=== PATIENT | female | born 1945 | race Two or more races ===

== ENCOUNTER 2022-12-09 19:54 | Inpatient (IN) | payer MEDICARE, OTHER ==
[~2022-12-09] VITALS: Ht 157.5 cm; Wt 70.3 kg
--- NOTE | 2022-12-09 20:39 | NUR ---
[email or web address], from home,c/o L knee pain s/p slipped and fall 6/10 ps Bruise left hip. Tolerating R/A well with no resp distress. Safety measures in place.
--- NOTE | 2022-12-09 20:39 | NUR ---
[email or web address], from home,c/o L knee pain s/p slipped and fall 6/10 ps bruising to L hip. Awake and alert at baseline mentation -head trauma.
--- NOTE | 2022-12-09 20:40 | NUR ---
PT A/OX4. LEFT LOWER EXTREMITY NOTED WITH EXTERNAL ROTATION AND SHORTENING.
--- NOTE | 2022-12-09 20:55 | NUR ---
COVID ANTIGEN SWAB COLLECTED AND SENT TO LAB
--- NOTE | 2022-12-09 20:56 | NUR ---
LAC #20G S/L; PATENT AND INTACT
--- NOTE | 2022-12-09 21:17 | NUR ---
IN FLIGHT REFUELING OPERATOR AT PT'S BEDSIDE
[2022-12-09] MEDS ORDERED: KETOROLAC TROMETHAMINE 15 MG/ML VIAL ONE (22:08)
[2022-12-09] MEDS ORDERED: KETOROLAC TROMETHAMINE INJ 30 MG/ML VIAL IV ONE (22:30)
--- NOTE | 2022-12-09 23:16 | NUR ---
Cassius mcelroy in [facility] - 12/09/22 at 2317 by KASSI [id number]
--- NOTE | 2022-12-09 23:30 | NUR ---
REPORT GIVEN TO CARYL Meléndez RN FOR CRISTINA
--- NOTE | 2022-12-09 23:33 | NUR ---
UPDATED IDALIA ( DAUGHTER ) [phone] REGARDING ADMISSION
--- NOTE | 2022-12-09 23:45 | NUR ---
PT TRANSFERRING TO [facility] VIA HOTPITAL PROTOCOL. VSS. ALL BELONGINGS WITH PT
--- NOTE | 2022-12-10 00:10 | NUR ---
ADMISSION 77 Female Alert Oriented x4. Skin checked done, no pressure injury. Oriented to room, unit, staff. Limited movement LLE d/t pain. Fall precaution maintained. Will cont to monitor.
[2022-12-10] MEDS ORDERED: hydrALAZINE HCL IV 20 MG VIAL IV PRN (00:30)
[2022-12-10] MEDS ORDERED: DEXTROSE 50%-WATER 50 ML DISP.SYRIN IV PRN (00:30)
[2022-12-10] MEDS ORDERED: Z GUARD REMEDY 4 OZ OINT TP PRN (00:30)
[2022-12-10] MEDS ORDERED: ONDANSETRON HCL/PF 4 MG/2 ML VIAL IVP PRN (00:30)
[2022-12-10] MEDS ORDERED: MORPHINE SULFATE INJ 2 MG/ML DISP.SYRIN IV PRN (00:30)
[2022-12-10] MEDS ORDERED: ACETAMINOPHEN 325 MG TABLET PO PRN ×2 (00:30→19:30)
[2022-12-10 00:48] VITALS: BP 158/71
[2022-12-10 01:04] LABS: BASOPHILS % (AUTO) 0.4 % (0.0-2.0); EOSINOPHILS % (AUTO) 0.4 % (0.0-6.0); HEMATOCRIT 38 % (33-45); HEMOGLOBIN 12.5 g/dL (11.5-14.8); LYMPHOCYTES % (AUTO) 18.8 % (20.0-44.0); MEAN CORPUSCULAR HGB CONC 33 g/dl (31.0-36.0); MEAN CORPUSCULAR VOLUME 86 fL (82-100); MONOCYTES % (AUTO) 9.3 % (2.0-12.0); NEUTROPHILS # (AUTO) 7.6 K/uL (1.8-8.9); NEUTROPHILS % (AUTO) 71.1 % (43.0-81.0); PLATELET COUNT (AUTO) 300 K/uL (150-450); RED BLOOD CELL COUNT(AUTO) 4.38 MIL/uL (4.0-5.2); WHITE BLOOD COUNT (AUTO) 10.7 K/uL (4.3-11.0)
[2022-12-10 01:35] LABS: ALBUMIN 3.2 g/dL (3.4-5.0); BILIRUBIN,TOTAL 1.2 mg/dL (0.2-1.0); CALCIUM, SERUM 9.1 mg/dL (8.5-10.1); CREATININE 0.7 mg/dL (0.6-1.3); MAGNESIUM 1.4 mg/dL (1.8-2.4); POTASSIUM 3.1 mmol/L (3.5-5.1); TOTAL PROTEIN, SERUM 7.7 g/dL (6.4-8.2)
[2022-12-10] MEDS ORDERED: POTASSIUM CHLORIDE 20 MEQ TAB.PRT.SR PO ONE (02:30)
[2022-12-10] MEDS: Magnesium 1GM/D5W 100ML PREMIX 100 ML IV SCH ×4 (02:47→06:07)
--- NOTE | 2022-12-10 06:20 | NUR ---
END OF SHIFT REPORT Patient in bed, awake. Oxygen sat high 90's in RA. Left knee pain managed with Morphine IV. NPO. Low Potassium and Magnesium, supplemented. No Clean catch for specimen urine as patient not voided yet, patient voided urine in the last 5 hours on diaper upon admission to unit. Plan for Ortho, Cardio consult. Will endorse to oncoming RN.
[2022-12-10] MEDS: BLOOD SUGAR DIAGNOSTIC 1 EACH STRIP IN SCH ×4 (06:33→22:27)
[2022-12-10] MEDS: INSULIN REGULAR, HUMAN 100 UNIT/ML 3 ML VIAL SQ PRN ×3 (06:35→22:29)
[2022-12-10] MEDS: PANTOPRAZOLE 40 MG TABLET.DR PO SCH (07:30)
--- NOTE | 2022-12-10 07:30 | NUR ---
MS RN OPENING NOTES RECEIVED PATIENT IN BED AWAKE , A/O 4, VERBALLY RESPONSIVE , ROOM AIR AND TOLERATED WELL , NO SOB OR DISTRESS , NO C/O OF PAIN AND DISCOMFORT , IV ACCESS LAC #20 SL , ON NPO AT THIS TIME , SAFETY MEASURES PROVIDED , CALL WITHIN REACH , SIDERAILS X2 AND WILL CONTINIU TO MONITOR .
[2022-12-10 08:34] VITALS: BP 164/90
[2022-12-10] MEDS: IV D5/0.45 NACL 1,000 ML IV PRN ×2 (13:16→20:09)
--- NOTE | 2022-12-10 13:57 | NUR ---
RN NOTES REGULAR INSULIN NOT GIVEN PATIENT ON NPO FOR SURGERY AND STARTED WITH IV FLUID D51/2 NS @75 ML /HOUR
[2022-12-10 14:45] LABS: BILIRUBIN,URINE 1+ (NEGATIVE); COLOR,URINE YELLOW (YELLOW); LEUKOCYTE ESTERASE ,URINE NEGATIVE (NEGATIVE); NITRITE, URINE NEGATIVE (NEGATIVE); PROTEIN,URINE NEGATIVE (NEGATIVE); UGLUCOSE NEGATIVE (NEGATIVE)
[2022-12-10] MEDS ORDERED: GABA-532 PO (15:31)
[2022-12-10] MEDS ORDERED: METF-442 PO (15:34)
[2022-12-10] MEDS ORDERED: VALS320T2 PO (15:35)
[2022-12-10] MEDS ORDERED: ASPI-1420 PO (15:36)
[2022-12-10] MEDS ORDERED: ATOR20TA PO (15:37)
[2022-12-10] MEDS ORDERED: REPA1TAB7 PO ×2 (15:38→21:32)
[2022-12-10 15:40] LABS: BACTERIA,URINE None seen /HPF (None Seen); RBC,URINE 0-2 /HPF (0-2); WBC,URINE 0-2 /HPF (0-3)
[2022-12-10] MEDS ORDERED: BUPIVACAINE 0.25% 75 MG/30 ML VIAL ONE (15:49)
[2022-12-10 16:07] VITALS: BP 159/70
--- NOTE | 2022-12-10 17:31 | NUR ---
RN NOTES BS NOT TAKEN PATIENT WENT TO SURGERY
--- NOTE | 2022-12-10 17:35 | NUR ---
RN NOTES PATIENT WAS MARKETING AMBASSADOR FOR SURGERY WITH DR ANDRES
[2022-12-10] MEDS ORDERED: FENTANYL PF 100MCG/2ML AMPUL ONE ×2 (17:39)
--- NOTE | 2022-12-10 18:59 | NUR ---
RN NOTES PATIENT STILL ON SURGERY AND ENDORSED TO COMMISSARY HELPER
[2022-12-10] MEDS ORDERED: DOCUSATE SODIUM 100 MG CAPSULE PO PRN (19:30)
[2022-12-10] MEDS ORDERED: DOCUSATE SODIUM 250 MG CAPSULE PO PRN (19:30)
[2022-12-10] MEDS ORDERED: HYDROCODONE/APAP 5/325MG TABLET PO PRN (19:30)
[2022-12-10] MEDS ORDERED: SENNOSIDES 8.6 MG TABLET PO PRN ×2 (19:30)
--- NOTE | 2022-12-10 19:40 | NUR ---
RN OPENING NOTE PATIENT AWAKE IN BED. A/OX4. NO S/S OF DISTRESS, BREATHING WITHOUT DIFFICULTY ON 2L NC. PATIENT RETURNED FROM OR STABLE; PATIENT HAS DAUGHTER AT BEDSIDE. PATIENT COMPLAINS OF PAIN 04/01 (MORPHINE ADMINISTERED). VS FOLLOWS: T: 97.7 HR: 69 O2: 95 BP: 160/78 RESP: 16 R-HAND #22 INTACT AND PATENT W/ D5-1/2NS 75ML/HR. SAFETY MEASURES IN PLACE: BED LOCKED AND AT LOWEST POSITION, LOW-FOWLERS, RAILS UP X2, CALL YING WITHIN REACH. WILL CONTINUE TO MONITOR PATIENT.
[2022-12-10] MEDS: MORPHINE SULFATE INJ 4 MG/ML DISP.SYRIN IV PRN (20:10)
[2022-12-10 20:30] VITALS: BP 161/77
[2022-12-10] MEDS ORDERED: GABA300C PO (21:32)
[2022-12-10] MEDS ORDERED: BRIM5DRO2 OP (21:32)
[2022-12-11] MEDS: ANCEF 1 GM/50 ML D5W IV SCH ×4 (01:06→09:04)
[2022-12-11] MEDS ORDERED: CEFAZOLIN 1 GM in IV D5W 50 ML IV SCH (02:10)
[2022-12-11] MEDS: IV D5/0.45 NACL 1,000 ML IV PRN (06:30)
[2022-12-11] MEDS: BLOOD SUGAR DIAGNOSTIC 1 EACH STRIP IN SCH ×4 (06:30→21:47)
[2022-12-11] MEDS: INSULIN REGULAR, HUMAN 100 UNIT/ML 3 ML VIAL SQ PRN ×4 (06:31→21:50)
--- NOTE | 2022-12-11 06:43 | NUR ---
RN CLOSING NOTE PATIENT AWAKE IN BED. A/OX4. NO S/S OF DISTRESS, BREATHING WITHOUT DIFFICULTY ON 2L NC. R-HAND #22 INTACT AND PATENT W/ D5-1/2NS 75ML/HR. SAFETY MEASURES IN PLACE: BED LOCKED AND AT LOWEST POSITION, MID-FOWLERS, RAILS UP X2, CALL YING WITHIN REACH. WILL ENDORSE TO NEXT SHIFT FOR CRISTINA.
[2022-12-11 07:00] VITALS: BP 158/81
--- NOTE | 2022-12-11 07:26 | NUR ---
MS RN OPENING NOTE RECEIVED PT AWAKE AND RESTING IN BED. PT IS A/O X4, ABLE TO MAKE NEEDS KNOWN. PT ON O2 AT 2L/MIN VIA NASAL CANNULA, TOLERATING WELL. NO SOB NOTED. NOT IN ANY SIGN OF RESPIRATORY DISTRESS. IV ACCESS ON RIGHT HAND G#22 INTACT AND PATENT WITH D5 1/2 NS INFUSING AT 75ML/HR. SAFETY MEASURES IN PLACE: BED IN LOWEST AND LOCKED POSITION, SIDE RAILS UPX2, AND CALL LIGHT WITHIN REACH. WILL CONTINUE PT WITH PLAN OF CARE.
[2022-12-11 07:34] LABS: BASOPHILS % (AUTO) 0.1 % (0.0-2.0); EOSINOPHILS % (AUTO) 0.1 % (0.0-6.0); HEMATOCRIT 34 % (33-45); HEMOGLOBIN 11.4 g/dL (11.5-14.8); LYMPHOCYTES % (AUTO) 9.6 % (20.0-44.0); MEAN CORPUSCULAR HGB CONC 33 g/dl (31.0-36.0); MEAN CORPUSCULAR VOLUME 86 fL (82-100); MONOCYTES % (AUTO) 9.6 % (2.0-12.0); NEUTROPHILS # (AUTO) 8.3 K/uL (1.8-8.9); NEUTROPHILS % (AUTO) 80.6 % (43.0-81.0); PLATELET COUNT (AUTO) 276 K/uL (150-450); RED BLOOD CELL COUNT(AUTO) 3.98 MIL/uL (4.0-5.2); WHITE BLOOD COUNT (AUTO) 10.3 K/uL (4.3-11.0)
[2022-12-11 07:53] LABS: CALCIUM, SERUM 8.3 mg/dL (8.5-10.1); CREATININE 0.6 mg/dL (0.6-1.3); PHOSPHORUS 2.4 mg/dL (2.5-4.9); POTASSIUM 3.6 mmol/L (3.5-5.1)
[2022-12-11] MEDS: PANTOPRAZOLE 40 MG TABLET.DR PO SCH (08:22)
[2022-12-11] MEDS: ENOXAPARIN SODIUM 40 MG/0.4 ML DISP.SYRIN SQ SCH (09:05)
[2022-12-11] MEDS ORDERED: K PHOS NEUTRAL 250 MG TABLET PO ONE ×2 (10:00→11:00)
[2022-12-11] MEDS: MORPHINE SULFATE INJ 4 MG/ML DISP.SYRIN IV PRN (10:04)
--- NOTE | 2022-12-11 10:06 | NUR ---
RN NOTE PT C/O LEFT HIP PAIN WITH PAIN SCALE LEVEL OF 9/10 AND REQUESTED FOR HER PAIN MEDICATION. MORPHINE 4MG IVP ADMINISTERED ORDERED Q4HRS PRN FOR PAIN. WILL MONITOR AND REASSESS PT.
[2022-12-11 17:00] VITALS: BP 148/59
--- NOTE | 2022-12-11 18:49 | NUR ---
MS RN CLOSING NOTE PT AWAKE AND RESTING IN BED. PT IS A/O X4, ABLE TO MAKE NEEDS KNOWN. PT ON O2 AT 2L/MIN VIA NASAL CANNULA, TOLERATING WELL. NO SOB NOTED. NOT IN ANY SIGN OF RESPIRATORY DISTRESS. PT'S IV ACCESS ON RIGHT HAND G#22 WAS PULLED OUT ACCIDENTLY. ATTEMPTED TO REINSERT COUPLE OF TIMES BUT UNABLE TO. MADE CHARGED NURSE AWARE AND PER CHARGE NURSE WILL ENDORSE TO BILINGUAL CUSTOMER SERVICE NURSE TO TRY TO REINSERT. PT ON S/P LEFT HIP CLOSED REDUCTION PERCUTANEOUS PINNING WITH CANNULATED SCREWS, DRESSING C/D/I. PT DENIES PAIN OR DISCOMFORT AT THIS TIME. MCGINNIS CATHETER IN PLACE AND DRAINING WELL. ALL NEEDS ATTENDED. KEPT CLEAN AND COMFORTABLE AT ALL TIMES. TURNED AND REPOSITIONED Q2HRS AND NEEDED. SAFETY MEASURES IN PLACE: BED IN LOWEST AND LOCKED POSITION, SIDE RAILS UPX2, AND CALL LIGHT WITHIN REACH. WILL ENDORSE TO BILINGUAL CUSTOMER SERVICE NURSE FOR CRISTINA.
--- NOTE | 2022-12-11 20:17 | NUR ---
RN OPENING NOTE PATIENT AWAKE IN BED WITH FAMILY AT BEDSIDE. A/OX4. NO S/S OF DISTRESS, BREATHING WITHOUT DIFFICULTY ON 2L NC. NO IV ACCESS IT WAS ENDORSED TO THIS NURSE FROM DAY SHIFT RN THAT THEY WERE UNABLE TO ACHIEVE ACCESS. CHARGE NURSE, KINJAL, WILL REINSERT IV PATIENT IS HESITANT TO HAVE ANOTHER IV ADMINISTERED. SAFETY MEASURES IN PLACE: BED LOCKED AND AT LOWEST POSITION, MID-FOWLERS, RAILS UP X2, CALL YING WITHIN REACH. WILL CONTINUE TO MONITOR PATIENT.
[2022-12-11 20:59] VITALS: BP 140/65
[2022-12-11] MEDS: HYDROCODONE/APAP 5/325MG TABLET PO PRN (21:47)
[2022-12-12] MEDS: HYDROCODONE/APAP 5/325MG TABLET PO PRN (05:40)
[2022-12-12 06:19] LABS: BASOPHILS # (AUTO) 0.1 K/uL (0.0-0.2); BASOPHILS % (AUTO) 0.6 % (0.0-2.0); EOSINOPHILS % (AUTO) 2.7 % (0.0-6.0); HEMATOCRIT 34 % (33-45); HEMOGLOBIN 11.2 g/dL (11.5-14.8); LYMPHOCYTES % (AUTO) 28.3 % (20.0-44.0); MEAN CORPUSCULAR HGB CONC 33 g/dl (31.0-36.0); MEAN CORPUSCULAR VOLUME 87 fL (82-100); MONOCYTES # (AUTO) 1.4 K/uL (0.1-1.30); MONOCYTES % (AUTO) 10.3 % (2.0-12.0); NEUTROPHILS # (AUTO) 8.1 K/uL (1.8-8.9); NEUTROPHILS % (AUTO) 58.1 % (43.0-81.0); PLATELET COUNT (AUTO) 309 K/uL (150-450); RED BLOOD CELL COUNT(AUTO) 3.94 MIL/uL (4.0-5.2)
[2022-12-12 06:29] LABS: CALCIUM, SERUM 8.9 mg/dL (8.5-10.1); CREATININE 0.6 mg/dL (0.6-1.3); MAGNESIUM 1.9 mg/dL (1.8-2.4); PHOSPHORUS 2.6 mg/dL (2.5-4.9); POTASSIUM 3.3 mmol/L (3.5-5.1)
[2022-12-12] MEDS: INSULIN REGULAR, HUMAN 100 UNIT/ML 3 ML VIAL SQ PRN ×3 (06:42→21:26)
[2022-12-12] MEDS: BLOOD SUGAR DIAGNOSTIC 1 EACH STRIP IN SCH ×4 (06:42→21:23)
--- NOTE | 2022-12-12 06:46 | NUR ---
RN CLOSING NOTE PATIENT ASLEEP IN BED. A/OX4. NO S/S OF DISTRESS, BREATHING WITHOUT DIFFICULTY ON 2L NC. NO IV ACCESS AT THIS TIME PATIENT HAS DECLINED IV REINSERTION. PATIENT HAD MCGINNIS REMOVED PER POST-OP ORDERS. PATIENT HAS NOT YET URINATED. PATIENT IS EATING AND DRINKING WELL. PATIENT STATED SHE WAS ABLE TO PASS GAS, BUT UNABLE TO HAVE A BOWEL MOVEMENT - NO URGE TO YET. PATIENT STATED SHE FELT LIKE URINATING BUT COULDN'T GO. BLADDER SCANNER PERFORMED REVEALING URINE RETENTION OF 452cc. ON-CALL, SUNIL CLAY. ORDERS GIVEN FOR STRAIGHT CATH W/ BLADDER SCANNER Q6HR. WILL ENDORSE TO NEXT SHIFT. SAFETY MEASURES IN PLACE: BED LOCKED AND AT LOWEST POSITION, MID-FOWLERS, RAILS UP X2, CALL YING WITHIN REACH. WILL ENDORSE TO NEXT SHIFT FOR CRISTINA.
--- NOTE | 2022-12-12 07:30 | NUR ---
RN OPENING NOTE PATIENT AWAKE IN BED WITH FAMILY AT BEDSIDE. A/OX4. NO S/S OF DISTRESS, BREATHING WITHOUT DIFFICULTY ON 2L NC. NO C/O OF PATIENT OF PAIN AND DISCOMFORT , NO IV ACCESS IT WAS ENDORSED TO THIS NURSE FROM RADIOLOGY CLERK RN THAT PATIENT REFUSED TO HAVE IV ACCCES . SAFETY MEASURES IN PLACE: BED LOCKED AND AT LOWEST POSITION, MID-FOWLERS, RAILS UP X2, CALL YING WITHIN REACH. WILL CONTINUE TO MONITOR PATIENT.
[2022-12-12 08:00] VITALS: BP 145/66
[2022-12-12] MEDS: PANTOPRAZOLE 40 MG TABLET.DR PO SCH (08:30)
[2022-12-12] MEDS: HOME MED MISCELLANEOUS EACHEYE SCH ×2 (08:32→17:16)
[2022-12-12] MEDS: ENOXAPARIN SODIUM 40 MG/0.4 ML DISP.SYRIN SQ SCH (08:33)
[2022-12-12] MEDS: POTASSIUM CHLORIDE 20 MEQ TAB.PRT.SR PO SCH ×2 (10:12→11:17)
[2022-12-12 16:13] VITALS: BP 147/73
--- NOTE | 2022-12-12 18:22 | NUR ---
RN CLOSING NOTE PATIENT AWAKE IN BED . A/OX4. NO S/S OF DISTRESS, BREATHING WITHOUT DIFFICULTY ON 2L NC. NO C/O OF PATIENT OF PAIN AND DISCOMFORT , NEW IV ACCESS INSERTED ON LEFT FOREARM AND SALINE LOCK , BLADDER SCAN DONE AND NOTED WITH URINE RETENTION OF LIKE 600 ML AND LANGUAGE PATH BETHANIE MADE AWARE AND WITH ORDER TO HAVE MCGINNIS CATHETER INSERTED WITH 800CC OUTPUT , ALL DUE MEDS ORDERED GIVEN AND ALL NEEDS ATTENDED . SEEN BY REH[facility] AND ABLE TO DO EOB AND STANDING UP WITH WALKER , FOR D/C PLANNING TO SNF VS ARU , SAFETY MEASURES IN PLACE: BED LOCKED AND AT LOWEST POSITION, MID-FOWLERS, RAILS UP X2, CALL YING WITHIN REACH. ENDORSED TO NEXT SHIFT .
--- NOTE | 2022-12-12 19:50 | NUR ---
MS RN OPENING NOTE PATIENT AWAKE IN BED WITH FAMILY AT BEDSIDE, ALERT/ORIENTED X 4, PT ABLE TO MAKE NEEDS KNOWN. PATIENT DENIES PAIN AT THIS TIME. PATIENT STABLE ON 2 LPM OF O2 VIA NASAL CANNULA, NO S/S OF DISTRESS OR SOB NOTED, BREATHING EVEN AND UNLABORED. IV ACCESS ON LFA #20G INTACT AND SALINE LOCKED. MCGINNIS CATHETER IN PLACE AND DRAINING YELLOW URINE BY GRAVITY. PATIENT STATES SHE HAS NOT HAD BM SINCE SATURDAY, OFFERED STOOL SOFTENER, WILL ADMINISTER. DAUGHTER ALSO CONCERNED ABOUT POSSIBLE DC TOMORROW, WILL LIKE TO TALK TO HOSPITALIST REGARDING DC PLANS, DOESN'T WANT PT TO BE DISCHARGED WITH MCGINNIS. SAFETY MEASURES IN PLACE: CALL LIGHT WITHIN REACH, SIDE RAILS UP X 2, BED LOCKED IN LOWEST POSITION, HOB ELEVATED, BED ALARM ON. WILL CONTINUE TO MONITOR PATIENT
[2022-12-12 20:00] VITALS: BP 173/53
--- NOTE | 2022-12-12 21:00 | NUR ---
MS RN NOTE REASSESSED PATIENT'S BP, BP STILL HIGH 174/93, HR: 62. WILL ADMINISTER HYDRALAZINE 10 MG IV ORDERED. WILL CONTINUE TO MONITOR
[2022-12-12 23:00] VITALS: BP 157/69
[2022-12-13 06:04] LABS: BASOPHILS # (AUTO) 0.1 K/uL (0.0-0.2); BASOPHILS % (AUTO) 0.7 % (0.0-2.0); EOSINOPHILS % (AUTO) 3.8 % (0.0-6.0); HEMATOCRIT 35 % (33-45); HEMOGLOBIN 11.6 g/dL (11.5-14.8); LYMPHOCYTES # (AUTO) 2.7 K/uL (0.8-4.8); LYMPHOCYTES % (AUTO) 27.1 % (20.0-44.0); MEAN CORPUSCULAR HGB CONC 33 g/dl (31.0-36.0); MEAN CORPUSCULAR VOLUME 86 fL (82-100); MONOCYTES % (AUTO) 9.9 % (2.0-12.0); NEUTROPHILS # (AUTO) 5.8 K/uL (1.8-8.9); NEUTROPHILS % (AUTO) 58.5 % (43.0-81.0); PLATELET COUNT (AUTO) 330 K/uL (150-450); RED BLOOD CELL COUNT(AUTO) 4.06 MIL/uL (4.0-5.2); WHITE BLOOD COUNT (AUTO) 9.9 K/uL (4.3-11.0)
[2022-12-13 06:15] LABS: CALCIUM, SERUM 9.1 mg/dL (8.5-10.1); CARBON DIOXIDE 28 mmol/L (21-32); CHLORIDE 100 mmol/L (98-107); CREATININE 0.5 mg/dL (0.6-1.3); GLUCOSE 148 mg/dL (74-106); POTASSIUM 3.5 mmol/L (3.5-5.1); SODIUM SERUM 136 mmol/L (136-145); UREA NITROGEN, BLOOD 11 mg/dL (7-18)
[2022-12-13] MEDS: BLOOD SUGAR DIAGNOSTIC 1 EACH STRIP IN SCH ×3 (06:30→17:47)
[2022-12-13] MEDS: INSULIN REGULAR, HUMAN 100 UNIT/ML 3 ML VIAL SQ PRN ×3 (06:30→17:48)
--- NOTE | 2022-12-13 06:51 | NUR ---
MS RN CLOSING NOTE PATIENT AWAKE IN BED, ALERT/ORIENTED X 4, PT ABLE TO MAKE NEEDS KNOWN. PATIENT VERY ANXIOUS ALL SHIFT, NEEDS FREQUENT REASSURANCE, OFFERED TO ASK RAPIER INSERTION LOOM FIXER MD FOR ANXIETY OR SLEEPING MEDICATION BUT PATIENT REFUSED. PATIENT DENIES PAIN AT THIS TIME. PATIENT STABLE ON RA, NO S/S OF DISTRESS OR SOB NOTED, BREATHING EVEN AND UNLABORED. IV ACCESS ON LFA #20G INTACT AND SALINE LOCKED. MCGINNIS CATHETER IN PLACE AND DRAINING YELLOW URINE BY GRAVITY. PATIENT STATES SHE HAS NOT HAD BM SINCE SATURDAY, ADMINISTERED [place] 17.6 MG BUT NO BOWEL THIS SHIFT, WILL ENDORSE TO DAYSHIFT RN TO GIVE COLACE. DAUGHTER CONCERNED ABOUT POSSIBLE DC TODAY, WILL LIKE TO TALK TO HOSPITALIST REGARDING DC PLANS, DOESN'T WANT PT TO BE DISCHARGED WITH MCGINNIS. MEDICATIONS GIVEN ORDERED, PATIENT NEEDS MET THROUGHOUT SHIFT. SAFETY MEASURES IN PLACE: CALL LIGHT WITHIN REACH, SIDE RAILS UP X 2, BED LOCKED IN LOWEST POSITION, HOB ELEVATED, BED ALARM ON. WILL ENDORSE TO DAYSHIFT RN FOR CONTINUITY OF CARE
--- NOTE | 2022-12-13 07:53 | NUR ---
MS RN OPENING NOTE PATIENT RESTING IN BED. ALERT AND ORIENTED X 4. ANXIOUS AND WORRIED ABOUT STAY. STABLE ON RA, NO S/S OF DISTRESS OR SOB NOTED, BREATHING EVEN AND UNLABORED. IV ACCESS ON LFA #20G INTACT AND SALINE LOCKED. MCGINNIS CATHETER IN PLACE AND DRAINING YELLOW URINE BY GRAVITY. DID NOT YET HAVE BOWEL MOVEMENT. ALL SAFETY MEASURES IN PLACE WITH CALL LIGHT WITHIN REACH, SIDE RAILS UP X 2, BED LOCKED IN LOWEST POSITION, HOB ELEVATED, BED ALARM ON. WILL CONTINUE TO MONITOR.
[2022-12-13 08:00] VITALS: BP 196/75
[2022-12-13] MEDS: PANTOPRAZOLE 40 MG TABLET.DR PO SCH (08:34)
[2022-12-13] MEDS: ENOXAPARIN SODIUM 40 MG/0.4 ML DISP.SYRIN SQ SCH (08:34)
[2022-12-13] MEDS: HOME MED MISCELLANEOUS EACHEYE SCH ×2 (08:48→17:21)
--- NOTE | 2022-12-13 10:16 | NUR ---
RN NOTE REMOVED MCGINNIS CATHETER PER JUSTINN BETHANIE STRINGER ORDER.
[2022-12-13] MEDS: HYDROCODONE/APAP 5/325MG TABLET PO PRN (10:35)
[2022-12-13] MEDS ORDERED: VALSARTAN 80 MG TABLET PO SCH (12:00)
[2022-12-13] MEDS ORDERED: ATORVASTATIN 10 MG TABLET PO SCH (12:00)
[2022-12-13 12:04] VITALS: BP 143/54
[2022-12-13] MEDS: GABAPENTIN 300 MG CAPSULE PO SCH ×2 (12:18→17:21)
--- NOTE | 2022-12-13 12:53 | NUR ---
RN NOTE BLADDER SCAN SHOWS ONLY 22ML OF URINE IN BLADDER.
[2022-12-13] MEDS ORDERED: SENN-175 PO (13:13)
[2022-12-13] MEDS ORDERED: ACET325T53 PO (13:13)
[2022-12-13] MEDS ORDERED: PANT40TA49 PO (13:13)
[2022-12-13] MEDS ORDERED: Hydrocodone/Apap 5/325MG PO (13:13)
[2022-12-13] MEDS ORDERED: DOCU100C36 PO (13:13)
[2022-12-13] MEDS ORDERED: ENOX40DI SQ (13:13)
--- NOTE | 2022-12-13 14:34 | NUR ---
RN NOTE PATIENT SUCCESSFULLY URINATED IN BED JOHNSON. NOTIFIED BETHANIE PHOENIX.
[2022-12-13 15:55] VITALS: BP 166/55
[2022-12-13] MEDS ORDERED: METFORMIN 500 MG TABLET PO SCH (17:00)
[2022-12-14] MEDS ORDERED: ASPIRIN EC 81 MG TABLET.DR PO SCH (09:00)
== END 2022-12-13 18:30 | DRG 482 ==
LOC: ER 19:56 → MED 23:24
PROVIDERS: ADMIT Nurse Practitioner Family; ATTEND Nurse Practitioner Acute Care
PROC: 0QS734Z Reposition Left Upper Femur with Internal Fixation Device, Percutaneous Approach (ICD-10-PCS; principal; 2022-12-10)
DX: S72.012A Unspecified intracapsular fracture of left femur, initial encounter for closed fracture (principal); E83.42 Hypomagnesemia; W19.XXXA Unspecified fall, initial encounter; M17.12 Unilateral primary osteoarthritis, left knee; E11.9 Type 2 diabetes mellitus without complications; Z20.822 Contact with and (suspected) exposure to COVID-19; M21.052 Valgus deformity, not elsewhere classified, left hip; Y92.9 Unspecified place or not applicable; I10 Essential (primary) hypertension; E78.5 Hyperlipidemia, unspecified; Z87.891 Personal history of nicotine dependence; M16.0 Bilateral primary osteoarthritis of hip; E87.6 Hypokalemia; D72.829 Elevated white blood cell count, unspecified; M25.40 Effusion, unspecified joint; Z98.891 History of uterine scar from previous surgery; Z79.899 Other long term (current) drug therapy; Z79.82 Long term (current) use of aspirin; Z79.84 Long term (current) use of oral hypoglycemic drugs
CPT/HCPCS: 36415; 71045-TC; 73020; 73502; 73564-TC; 73700-TC; 80048-TC; 80053-TC; 80061-TC; 81001; 82962-TC; 83735-TC; 83880; 84100-TC; 85025-TC; 85610-TC; 87081-TC; 93307-TC; 93971-TC; 97110-TC; 97116-TC; 97530-TC; A4223; C9803; G0378; J0360; J0690; J1100; J1650; J1815; J1885; J2001; J2270; J2405; J2704; J3010; J3475; J3490; J7030; J7040; J7042; J7060